=== PATIENT | female | born 1975 | race Caucasian/White ===

== ENCOUNTER → 2016-08-29 | Outpatient (CLI) | payer BC ==
--- NOTE | 2016-08-29 11:13 | CR ---
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 No fracture or acute o sseous abnormality. Bone mineralization is otherwise normal.
== END ==
LOC: MW.CHORTHO 07:41
PROVIDERS: ATTEND Physician Assistant
DX: M25.511 Pain in right shoulder (principal); M19.011 Primary osteoarthritis, right shoulder
CPT/HCPCS: 73030-26-RT; 73030-RT

== ENCOUNTER 2019-01-06 06:38 | Day surgery (SDC) | payer OTHER ==
[2019-01-05 11:56] LABS: BLOOD UREA NITROGEN,BUN 14 mg/dL (7.0-18.0); CARBON DIOXIDE,CO2 24.2 mmol/L (21.0-32.0); CHLORIDE,CL 105 mmol/L (98-107); GLUCOSE RANDOM 95 mg/dL (74-106); POTASSIUM,K 3.9 mmol/L (3.5-5.1); SODIUM,NA 139 mmol/L (136-145)
[~2019-01-06 06:38] MED LIST: Lactated Ringers 1,000 ML IV SCH; Sodium Chloride 0.9% 10 ML SDV IV PRN; Sodium Chloride 0.9% 10 ML Syringe FLUSH PRN; Sodium Chloride 0.9% 2.5 ML Syringe FLUSH PRN; ceFAZolin 2 GM in Premix Bag 1 BAG IV ONE
[2019-01-06] MEDS ORDERED: Scopolamine 1.5 MG Transdermal Patch TRDERM PRN (07:04)
--- NOTE | 2019-01-06 07:08 | PCM.PREANE ---
Preanesthetic Assessment - Anesthesia/Transfusion/Family Hx Anesthesia History: Prior Anesthesia Without Reaction Family History of Anesthesia Reaction: No Transfusion History: No Prior Transfusion(s) Intubation History: Unknown - Review of Systems General: No Symptoms Pulmonary: No Symptoms Cardiovascular: No Symptoms Gastrointestinal: No Symptoms Neurological: No Symptoms Other: Reports: None - Physical Assessment Vital Signs: Last Vital Signs Temp 36.6 C 01/06/19 06:52 Pulse 67 01/06/19 06:52 Resp 16 01/06/19 06:52 BP 137/86 01/06/19 06:52 Pulse Ox 98 01/06/19 06:52 Height: 5 ft 6 in Weight: 97.069 kg ASA Class: 2 Mental Status: Alert & Oriented x3 Airway Class: Mallampati = 2 Dentition: Reports: Normal Dentition, Partial (upper front - fixed) Thyro-Mental Finger Breadths: 3 Mouth Opening Finger Breadths: 2 ROM/Head Extension: Full Lungs: Clear to Auscultation, Normal Respiratory Effort Cardiovascular: Regular Rate, Regular Rhythm - Lab Values: Laboratory Last Values WBC 8.86 K/uL (4.0-11.0) 01/05/19 10:15 RBC 4.58 M/uL (4.30-5.90) 01/05/19 10:15 Hgb 13.5 g/dL (12.0-16.0) 01/05/19 10:15 Hct 40.1 % (36.0-46.0) 01/05/19 10:15 MCV 87.6 fL (80.0-98.0) 01/05/19 10:15 MCH 29.5 pg (27.0-32.0) 01/05/19 10:15 MCHC 33.7 g/dL (31.0-37.0) 01/05/19 10:15 RDW Std Deviation 43.2 fl (28.0-62.0) 01/05/19 10:15 RDW Coeff of Jackson 14 % (11.0-15.0) 01/05/19 10:15 Plt Count 258 K/uL (150-400) 01/05/19 10:15 MPV 10.00 fL (7.40-12.00) 01/05/19 10:15 Nucleated RBC % 0.0 /100WBC 01/05/19 10:15 Nucleated RBCs # 0 K/uL 01/05/19 10:15 Sodium 139 mmol/L (136-145) 01/05/19 10:15 Potassium 3.9 mmol/L (3.5-5.1) 01/05/19 10:15 Chloride 105 mmol/L (98-107) 01/05/19 10:15 Carbon Dioxide 24.2 mmol/L (21.0-32.0) 01/05/19 10:15 BUN 14 mg/dL (7.0-18.0) 01/05/19 10:15 Creatinine 0.8 mg/dL (0.6-1.0) 01/05/19 10:15 Est Cr Clr Drug Dosing 82.26 mL/min 01/05/19 10:15 Estimated GFR (MDRD) > 60.0 ml/min 01/05/19 10:15 Glucose 95 mg/dL (74-106) 01/05/19 10:15 Calcium 9.7 mg/dL (8.5-10.1) 01/05/19 10:15 HCG, Qual NEGATIVE (NEG) 01/05/19 10:15 Blood Type A POSITIVE 01/05/19 10:15 Antibody Screen NEGATIVE 01/05/19 10:15 - Allergies Allergies/Adverse Reactions: Allergies Allergy/AdvReac Type Severity Reaction Status Date / Time Sulfa (Sulfonamide Allergy Nausea and Verified 01/06/19 07:00 Antibiotics) Vomiting - Blood Blood Available: No - Anesthesia Plan Pre-Op Medication Ordered: None - Acknowledgements Anesthesia Type Planned: General Anesthesia Pt an Appropriate Candidate for the Planned Anesthesia: Yes Alternatives and Risks of Anesthesia Discussed w Pt/Guardian: Yes Pt/Guardian Understands and Agrees with Anesthesia Plan: Yes PreAnesthesia Questionnaire HEENT History: Reports: Impaired Vision Other HEENT History: wears glasses, has upper permanent dental bridge Cardiovascular History: Reports: High Cholesterol Respiratory History: Reports: None Gastrointestinal History: Reports: GERD Other Gastrointestinal History: occas Genitourinary History: Reports: None GARMENT FINISHER History: Reports: Dysfunctional Uterine Bleeding Musculoskeletal History: Reports: None Neurological History: Reports: Headaches, Chronic Other Neuro History: "whiplash" as a child Psychiatric History: Reports: Anxiety, Depression Endocrine/Metabolic History: Reports: Obesity/BMI 30+ Hematologic History: Reports: Anemia Immunologic History: Reports: None Oncologic (Cancer) History: Reports: None Dermatologic History: Reports: None - Past Surgical History Head Surgeries/Procedures: Reports: None HEENT Surgical History: Reports: None Cardiovascular Surgical History: Reports: None Respiratory Surgical History: Reports: None GI Surgical History: Reports: Cholecystectomy Female Surgical History: Reports: Breast Biopsy, Section, Tubal Ligation, Other (See Below) Other Female Surgeries/Procedures: hysteroscopy x2, ovarian cystectomy Endocrine Surgical History: Reports: None Neurological Surgical History: Reports: None Musculoskeletal Surgical History: Reports: None Oncologic Surgical History: Reports: None - SUBSTANCE USE Smoking Status *Q: Former Smoker (quit ) Recreational Drug Use History: No - HOME MEDS Home Medications: Home Meds Acetaminophen [Tylenol] 325 mg PO ASDIRECTED 03/23/15 [History] Ibuprofen [Motrin] 800 mg PO ASDIRECTED PRN 03/23/15 [History] hydrOXYzine HCl [Atarax] 25 mg PO QID PRN 03/23/15 [History] Calcium Carbonate [Tums] 1 tab PO ASDIRECTED PRN 07/18/15 [History] Omeprazole Magnesium [Prilosec Otc] 20 mg PO DAILY 01/03/19 [History] - CURRENT (IN HOUSE) MEDS Current Meds: Current Medications Lactated Ringer's (Ringers, Lactated) 1,000 mls @ 125 mls/hr IV ASDIRECTED KATY Last Admin: 01/06/19 06:57 Dose: 125 mls/hr Sodium Chloride (Saline Flush) 10 ml FLUSH ASDIRECTED PRN PRN Reason: Keep Vein Open Sodium Chloride (Saline Flush) 2.5 ml FLUSH ASDIRECTED PRN PRN Reason: Keep Vein Open Sodium Chloride (Normal Saline) 10 ml IV ASDIRECTED PRN PRN Reason: IV Use Discontinued Medications Cefazolin Sodium/Dextrose 2 gm (/ Premix) 50 mls @ 100 mls/hr IV ONETIME ONE Stop: 01/05/19 09:18
[2019-01-06] MEDS ORDERED: Propofol 200 MG/20 ML SDV ONE (07:15)
[2019-01-06] MEDS ORDERED: Neostigmine Methylsulfate 1 MG/ML 5 ML Syringe ONE (07:15)
[2019-01-06] MEDS ORDERED: Midazolam 1 MG/ML 2 ML SDV ONE ×2 (07:15→11:49)
[2019-01-06] MEDS ORDERED: Lidocaine 2% 5 ML SDV ONE (07:15)
[2019-01-06] MEDS ORDERED: Glycopyrrolate 0.2 MG/ML SDV ONE ×2 (07:15→08:40)
[2019-01-06] MEDS ORDERED: Ondansetron 4 MG/2 ML SDV ONE (07:15)
[2019-01-06] MEDS ORDERED: fentaNYL 250 MCG/5 ML SDV ONE ×2 (07:16→08:37)
[2019-01-06] MEDS ORDERED: Fluorescein 5 ML Vial ONE (07:33)
[2019-01-06] MEDS ORDERED: Octyl 2-Cyanoacrylate 1 Tube ONE (07:34)
[2019-01-06] MEDS ORDERED: Atropine 0.1 MG/ML 10 ML Syringe IVPUSH PRN ×2 (07:47)
[2019-01-06] MEDS ORDERED: EPINEPHrine 1:10,000 1 MG/10 ML Syringe IVPUSH PRN (07:47)
[2019-01-06] MEDS ORDERED: Albuterol 0.083% 2.5 MG/3 ML Neb Soln NEB PRN (07:47)
[2019-01-06] MEDS ORDERED: Naloxone 0.4 MG/ML Syringe IVPUSH PRN (07:47)
[2019-01-06] MEDS ORDERED: 50% Dextrose in Water 50 ML Syringe IVPUSH PRN (07:47)
[2019-01-06] MEDS ORDERED: fentaNYL 100 MCG/2 ML SDV IVPUSH PRN (07:47)
[2019-01-06] MEDS ORDERED: ceFAZolin 1 GM Vial ONE (08:25)
[2019-01-06] MEDS ORDERED: Sodium Chloride 0.9% 20 ML ONE (08:25)
[2019-01-06] MEDS ORDERED: HYDROmorphone 2 MG/ML Syringe ONE (08:37)
[2019-01-06] MEDS ORDERED: Furosemide 40 MG/4 ML VIAL ONE (08:55)
[2019-01-06] MEDS ORDERED: Dexamethasone 4 MG/ML 5 ML MDV ONE (08:56)
[2019-01-06] MEDS ORDERED: Phenylephrine/Normal Saline 100 MCG/ML 10 ML Syringe ONE (09:17)
[2019-01-06] MEDS ORDERED: Acetaminophen/oxyCODONE 325-5 MG Tab PO PRN (10:25)
[2019-01-06] MEDS ORDERED: Morphine 4 MG/ML Syringe IVPUSH PRN (10:25)
[2019-01-06] MEDS ORDERED: Ondansetron 4 MG/2 ML SDV IVPUSH PRN (10:25)
[2019-01-06] MEDS ORDERED: Ketorolac 30 MG/ML SDV IVPUSH ONE (10:25)
[2019-01-06] MEDS ORDERED: Promethazine 25 MG/ML SDV IM PRN (10:25)
--- NOTE | 2019-01-06 10:28 | PCM.OPNOTE ---
- General Post-Op/Procedure Note Date of Surgery/Procedure: 01/06/19 Operative Procedure(s): TLH, Cysto Pre Op Diagnosis: Bleeding , pain Post-Op Diagnosis: Same Anesthesia Technique: General ET Tube Primary Surgeon: Cornelio Goddard EBL in mLs: 100 Complications: None Condition: Good
[2019-01-06] MEDS ORDERED: Rocuronium 100 MG/10 ML Syringe ONE (10:52)
[2019-01-06] MEDS ORDERED: Midazolam 1 MG/ML 2 ML SDV IVPUSH ONE (11:44)
--- NOTE | 2019-01-06 11:46 | OR ---
SURGEON: Cornelio Goddard MD DATE OF PROCEDURE: PREOPERATIVE DIAGNOSES: 1. Menometrorrhagia. 2. Pelvic pain. POSTOPERATIVE DIAGNOSES: 1. Menometrorrhagia. 2. Pelvic pain. OPERATIONS PERFORMED: Multiple-puncture laparoscopy; extensive lysis of adhesions; total laparoscopic hysterectomy and laparoscopic bilateral salpingectomy, preserving both ovaries; and cystoscopy. PRIMARY SURGEON: Cornelio Goddadr MD. OUTSIDE MACHINIST: OR tech. ANESTHESIA: General endotracheal intubation, Edgar Galindo and Dr. Bazan. ESTIMATED BLOOD LOSS: 100 mL. COMPLICATIONS: None. FINDINGS: The patient had extensive adhesions from previous procedures. Uterus is about 12-week size. Ovary essentially is normal. INDICATION FOR SURGERY: [place] referred to the admit note. PROCEDURE IN DETAIL: The patient brought to the OR, properly identified, and after adequate level of anesthesia, the patient was placed in lithotomy position with an access to the abdomen and the vagina. The patient was prepped and draped in sterile fashion as usual. Caruso catheter was placed in the bladder for drainage and then the colpotomizer and manipulator were placed in the uterus for manipulation, and after properly inflated all the valves in the manipulator, the operation shifted abdominally. Stab wound done beneath the umbilicus. Veress needle was placed in the peritoneal cavity and that cavity insufflated with 3.5 L of carbon dioxide. Through the infraumbilical incision, a 5 mm trocar with the scope in it inserted utilizing the Visiport technique. Once we were in the peritoneal cavity, steep Trendelenburg was done and then it was noticed that the patient does have adhesions. I was able to put a 10/12 trocar in the left iliac fossa, and using the Harmonic scalpel and scissors with sharp and blunt dissection, the adhesion was lysed from the anterior abdominal wall and the pelvic sidewall restoring a normal anatomy and a clear path to the pelvis. The operation was started by identifying all the landmark of the pelvis, and then once we did that, then the superior pedicle coagulated, transected from both side. The ovary preserved and both tubes included with the specimen. Then, the round ligament dissected downward and then transected with the William Harmonic scalpel and then the anterior leaf of the broad ligament dissected downward on both sides, pushing the bladder completely away from the operative field, and the surgeon could easily feel through the instrument the manipulator ring. Then, the uterine vessel is coagulated, transected with William Harmonic scalpel on both sides and then judicious use of the bipolar cautery is used to dry the field. Once we were done, then the vaginal incision was done at the edge of the manipulator with the William Harmonic scalpel in a circular fashion, detaching the uterus from its attachment to the vagina. The uterus and tubes were removed vaginally and then pneumoperitoneum re-established by placing vaginal pack in the vagina and then the vaginal wall was closed laparoscopically with 2-0 Vicryl, PDS interrupted sutures. Once this was done, then thorough irrigation of the pelvis. There was no oozing or bleeding from all the pedicle. At this time, we asked the Anesthesia personnel to give the patient fluorescein, and after removing all the fluid from the abdomen and placing the patient supine on the operative table again, the Caruso catheter removed. Cystoscopy was performed. The bladder was intact. Both ureteric orifices were seen with the dye coming from both of them. Thus, the patency of both ureters verified. Satisfied with these findings, the cystoscope was removed and the bladder drained and multiple laparoscopic removed from the abdomen and the vagina and then the laparoscopic incision was closed with 2-0 Vicryl and sutured in layer and Dermabond. Instrument and sponge count was correct. The patient tolerated the procedure well, went to recovery room in stable general condition. ERIS / JENNIFER /[id number]
--- NOTE | 2019-01-06 12:22 | PCM.POSTAN ---
POST ANESTHESIA ASSESSMENT - MENTAL STATUS Mental Status: Alert, Oriented - VITAL SIGNS Vital Signs: Last Vital Signs Temp 36.1 C 01/06/19 10:24 Pulse 68 01/06/19 12:10 Resp 8 L 01/06/19 12:10 BP 117/61 01/06/19 12:10 Pulse Ox 98 01/06/19 12:10 - RESPIRATORY Respiratory Status: Respiratory Rate WNL, Airway Patent, O2 Saturation Stable - CARDIOVASCULAR CV Status: Pulse Rate WNL, Blood Pressure Stable - GASTROINTESTINAL GI Status: No Symptoms - PAIN Pain Score: 2 - POST OP HYDRATION Hydration Status: Adequate & Stable - OBSERVATIONS Free Text/Narrative:: no anesthesia problems
[2019-01-06] MEDS: Acetaminophen/oxyCODONE 325-5 MG Tab PO PRN (14:59)
[2019-01-06] MEDS: Ketorolac 30 MG/ML SDV IVPUSH PRN (18:26)
[2019-01-07] MEDS: Ketorolac 30 MG/ML SDV IVPUSH PRN ×2 (00:22→07:39)
[2019-01-07 06:31] LABS: BLOOD UREA NITROGEN,BUN 12 mg/dL (7.0-18.0); CARBON DIOXIDE,CO2 27.2 mmol/L (21.0-32.0); CHLORIDE,CL 106 mmol/L (98-107); GLUCOSE RANDOM 104 mg/dL (74-106); POTASSIUM,K 3.8 mmol/L (3.5-5.1); SODIUM,NA 142 mmol/L (136-145)
--- NOTE | 2019-01-07 07:01 | PCM48HPAN ---
Post Anesthesia Note - EVALUATION WITHIN 48HRS OF ANESTHETIC Vital Signs in Normal Range: Yes Patient Participated in Evaluation: Yes Respiratory Function Stable: Yes Airway Patent: Yes Cardiovascular Function Stable: Yes Hydration Status Stable: Yes Pain Control Satisfactory: Yes Nausea and Vomiting Control Satisfactory: Yes Mental Status Recovered: Yes Vital Signs: Last Vital Signs Temp 97.6 F 01/07/19 00:28 Pulse 68 01/07/19 00:28 Resp 18 01/07/19 00:28 BP 117/58 L 01/07/19 00:28 Pulse Ox 96 01/07/19 00:28
--- NOTE | 2019-01-07 09:02 | PCM.SURGPN ---
- General Info Date of Service: 01/07/19 POD#: 1 Functional Status: Reports: Pain Controlled - Review of Systems General: Reports: No Symptoms HEENT: Reports: No Symptoms Pulmonary: Reports: No Symptoms Cardiovascular: Reports: No Symptoms Gastrointestinal: Reports: No Symptoms Genitourinary: Reports: No Symptoms Musculoskeletal: Reports: No Symptoms Skin: Reports: No Symptoms Neurological: Reports: No Symptoms Psychiatric: Reports: No Symptoms - Patient Data Vitals - Most Recent: Last Vital Signs Temp 36.6 C 01/07/19 08:00 Pulse 66 01/07/19 08:00 Resp 18 01/07/19 00:28 BP 133/66 01/07/19 08:00 Pulse Ox 99 01/07/19 08:00 Weight - Most Recent: 97.069 kg I&O - Last 24 Hours: Intake & Output 01/06/19 01/07/19 01/07/19 22:59 06:59 14:59 Intake Total 1065 840 Output Total 700 1750 Balance 365 -910 Lab Results Last 24 Hrs: Laboratory Results - last 24 hr 01/07/19 01/07/19 Range/Units 06:07 06:07 WBC 9.72 (4.0-11.0) K/uL RBC 3.64 L (4.30-5.90) M/uL Hgb 10.4 L (12.0-16.0) g/dL Hct 32.3 L (36.0-46.0) % MCV 88.7 (80.0-98.0) fL MCH 28.6 (27.0-32.0) pg MCHC 32.2 (31.0-37.0) g/dL RDW Std Deviation 45.1 (28.0-62.0) fl RDW Coeff of Jackson 14 (11.0-15.0) % Plt Count 214 (150-400) K/uL MPV 9.90 (7.40-12.00) fL Neut % (Auto) 70.1 (48.0-80.0) % Lymph % (Auto) 21.1 (16.0-40.0) % [place] % (Auto) 8.1 (0.0-15.0) % Eos % (Auto) 0.5 (0.0-7.0) % Baso % (Auto) 0.2 (0.0-1.5) % Neut # (Auto) 6.8 H (1.4-5.7) K/uL Lymph # (Auto) 2.1 (0.6-2.4) K/uL [place] # (Auto) 0.8 (0.0-0.8) K/uL Eos # (Auto) 0.1 (0.0-0.7) K/uL Baso # (Auto) 0.0 (0.0-0.1) K/uL Nucleated RBC % 0.0 /100WBC Nucleated RBCs # 0 K/uL Sodium 142 (136-145) mmol/L Potassium 3.8 (3.5-5.1) mmol/L Chloride 106 (98-107) mmol/L Carbon Dioxide 27.2 (21.0-32.0) mmol/L BUN 12 (7.0-18.0) mg/dL Creatinine 0.8 (0.6-1.0) mg/dL Est Cr Clr Drug Dosing 82.26 mL/min Estimated GFR (MDRD) > 60.0 ml/min Glucose 104 (74-106) mg/dL Calcium 9.0 (8.5-10.1) mg/dL Med Orders - Current: Current Medications Lactated Ringer's (Ringers, Lactated) 1,000 mls @ 125 mls/hr IV ASDIRECTED [facility] Last Admin: 01/06/19 06:57 Dose: 125 mls/hr Ketorolac Tromethamine (Toradol) 30 mg IVPUSH Q6H PRN PRN Reason: Pain (severe 7-10) Stop: 01/11/19 10:25 Last Admin: 01/07/19 07:39 Dose: 30 mg Morphine Sulfate (Morphine) 4 mg IVPUSH Q2H PRN PRN Reason: Pain (severe 7-10) Ondansetron HCl (Zofran) 4 mg IVPUSH Q6H PRN PRN Reason: Nausea/Vomiting Oxycodone/Acetaminophen (Percocet 325-5 Mg) 1 tab PO Q4H PRN PRN Reason: Pain (moderate 4-6) Last Admin: 01/06/19 14:59 Dose: 1 tab Oxycodone/Acetaminophen (Percocet 325-5 Mg) 2 tab PO Q4H PRN PRN Reason: Pain (moderate 4-6) Last Admin: 01/06/19 20:38 Dose: 2 tab Promethazine HCl (Phenergan) 25 mg IM Q6H PRN PRN Reason: Nausea/Vomiting Scopolamine (Transderm-Scop) 1.5 mg TRDERM Q72H PRN PRN Reason: Nausea Last Admin: 01/06/19 07:31 Dose: 1.5 mg Sodium Chloride (Saline Flush) 10 ml FLUSH ASDIRECTED PRN PRN Reason: Keep Vein Open Sodium Chloride (Saline Flush) 2.5 ml FLUSH ASDIRECTED PRN PRN Reason: Keep Vein Open Sodium Chloride (Normal Saline) 10 ml IV ASDIRECTED PRN PRN Reason: IV Use Discontinued Medications Albuterol (Proventil Neb Soln) 2.5 mg NEB ONETIME PRN PRN Reason: Wheezing Atropine Sulfate (Atropine 0.1 Mg/Ml) 0.5 mg IVPUSH ASDIRECTED PRN PRN Reason: Hypo-perfusion Atropine Sulfate (Atropine 0.1 Mg/Ml) 1 mg IVPUSH ASDIRECTED PRN PRN Reason: Hypo-Perfusion Cefazolin Sodium (Ancef) Confirm Administered Dose 2 gm .ROUTE .STK-MED ONE Stop: 01/06/19 08:26 Dexamethasone (Dexamethasone) Confirm Administered Dose 20 mg .ROUTE .STK-MED ONE Stop: 01/06/19 08:57 Dextrose/Water (Dextrose 50% In Water) 50 ml IVPUSH ASDIRECTED PRN PRN Reason: Hypoglycemia Epinephrine HCl (Epinephrine 1:10,000) 1 mg IVPUSH ASDIRECTED PRN PRN Reason: ACLS Guidelines Fentanyl (Sublimaze) Confirm Administered Dose 250 mcg .ROUTE .STK-MED ONE Stop: 01/06/19 07:17 Fentanyl (Sublimaze) 50 - 100 mcg IVPUSH Q5M PRN PRN Reason: Pain Fentanyl (Sublimaze) Confirm Administered Dose 250 mcg .ROUTE .STK-MED ONE Stop: 01/06/19 08:38 Fluorescein Sodium (Ak-Fluor) Confirm Administered Dose 5 ml .ROUTE .STK-MED ONE Stop: 01/06/19 07:34 Furosemide (Lasix) Confirm Administered Dose 40 mg .ROUTE .STK-MED ONE Stop: 01/06/19 08:56 Glycopyrrolate (Robinul) Confirm Administered Dose 0.4 mg .ROUTE .ST-MED ONE Stop: 01/06/19 07:16 Glycopyrrolate (Robinul) Confirm Administered Dose 0.2 mg .ROUTE .[facility]-MED ONE Stop: 01/06/19 08:41 Hydromorphone HCl (Dilaudid) Confirm Administered Dose 2 mg .ROUTE .[facility]-MED ONE Stop: 01/06/19 08:38 Cefazolin Sodium/Dextrose 2 gm (/ Premix) 50 mls @ 100 mls/hr IV ONETIME ONE Stop: 01/05/19 09:18 Last Admin: 01/06/19 12:01 Dose: Not Given Sodium Chloride (Normal Saline) Confirm Administered Dose 20 mls @ as directed .ROUTE .[facility]-MED ONE Stop: 01/06/19 08:26 Ketorolac Tromethamine (Toradol) 30 mg IVPUSH ONETIME ONE Stop: 01/06/19 10:26 Last Admin: 01/06/19 11:19 Dose: 30 mg Lidocaine (Xylocaine-Mpf 2%) Confirm Administered Dose 5 ml .ROUTE .[facility]-MED ONE Stop: 01/06/19 07:16 Midazolam HCl (Versed 1 Mg/Ml) Confirm Administered Dose 2 mg .ROUTE .[facility]-MED ONE Stop: 01/06/19 07:16 Midazolam HCl (Versed 1 Mg/Ml) 2 mg IVPUSH ONETIME ONE Stop: 01/06/19 11:45 Last Admin: 01/06/19 11:53 Dose: 2 mg Midazolam HCl (Versed 1 Mg/Ml) Confirm Administered Dose 2 mg .ROUTE .[facility]-MED ONE Stop: 01/06/19 11:50 Last Admin: 01/06/19 12:01 Dose: Not Given Naloxone HCl (Narcan) 0.1 mg IVPUSH ASDIRECTED PRN PRN Reason: Respiratory Depression Neostigmine Methylsulfate (Neostigmine) Confirm Administered Dose 5 mg .ROUTE .[facility]-MED ONE Stop: 01/06/19 07:16 Octyl Cyanoacrylate (Dermabond Advance) Confirm Administered Dose 1 applic .ROUTE .[facility]-MED ONE Stop: 01/06/19 07:35 Ondansetron HCl (Zofran) Confirm Administered Dose 4 mg .ROUTE .ST-MED ONE Stop: 01/06/19 07:16 Phenylephrine HCl (Phenylephrine In Ns 100 Mcg/Ml) Confirm Administered Dose 1 mg .ROUTE .STK-MED ONE Stop: 01/06/19 09:18 Propofol (Diprivan 20 Ml) Confirm Administered Dose 200 mg .ROUTE .STK-MED ONE Stop: 01/06/19 07:16 Rocuronium [place] (Zemuron) Confirm Administered Dose 100 mg .ROUTE .STK-MED ONE Stop: 01/06/19 10:53 - Exam Wound/Incisions: Healing Well General: Alert, Oriented HEENT: Pupils Equal Neck: Supple Lungs: Clear to Auscultation, Normal Respiratory Effort Cardiovascular: Regular Rate, Regular Rhythm GI/Abdominal Exam: Normal Bowel Sounds, Soft, Non-Tender, No Organomegaly, No Distention, No Abnormal Bruit, No Mass, Pelvis Stable Extremities: Normal Inspection, Normal Range of Motion, Non-Tender, No Pedal Edema, Normal Capillary Refill Skin: Warm, Dry, Intact Neurological: No New Focal Deficit Psy/Mental Status: Alert, Normal Affect, Normal Mood - Problem List Review Problem List Initiated/Reviewed/Updated: Yes - My Orders Last 24 Hours: Active Orders 24 hr Category Date Time Status Patient Status [ADT] Routine ADT 01/06/19 10:25 Active Antiembolic Devices [RC] PER UNIT ROUTINE Care 01/06/19 10:26 Active Notify Provider Vital Signs [RC] ASDIRECTED Care 01/06/19 10:25 Active Oxygen Therapy [RC] ASDIRECTED Care 01/06/19 10:25 Active RT Incentive Spirometry [RC] Q2HWA Care 01/06/19 10:25 Active Up With Assistance [RC] PER UNIT ROUTINE Care 01/06/19 10:25 Active Up ad Geno [RC] PER UNIT ROUTINE Care 01/06/19 10:25 Active Regular Diet [DIET] Diet 01/06/19 Lunch Active Acetaminophen/oxyCODONE [Percocet 325-5 MG] Med 01/06/19 10:25 Active 1 tab PO Q4H PRN Acetaminophen/oxyCODONE [Percocet 325-5 MG] Med 01/06/19 10:25 Active 2 tab PO Q4H PRN Ketorolac [Toradol] Med 01/06/19 10:25 Active 30 mg IVPUSH Q6H PRN Morphine Med 01/06/19 10:25 Active 4 mg IVPUSH Q2H PRN Ondansetron [Zofran] Med 01/06/19 10:25 Active 4 mg IVPUSH Q6H PRN Promethazine [Phenergan] Med 01/06/19 10:25 Active 25 mg IM Q6H PRN Peripheral IV Discontinue [OM.PC] Routine Oth 01/06/19 10:25 Ordered Sequential Compression Device [OM.PC] Per Unit Routine Oth 01/06/19 10:25 Ordered Resuscitation Status Routine Resus Stat 01/06/19 10:25 Ordered Medication Orders Lactated Ringer's (Ringers, Lactated) 1,000 mls @ 125 mls/hr IV ASDIRECTED KATY Last Admin: 01/06/19 06:57 Dose: 125 mls/hr Ketorolac Tromethamine (Toradol) 30 mg IVPUSH Q6H PRN PRN Reason: Pain (severe 7-10) Stop: 01/11/19 10:25 Last Admin: 01/07/19 07:39 Dose: 30 mg Admin: 01/07/19 00:22 Dose: 30 mg Admin: 01/06/19 18:26 Dose: 30 mg Morphine Sulfate (Morphine) 4 mg IVPUSH Q2H PRN PRN Reason: Pain (severe 7-10) Ondansetron HCl (Zofran) 4 mg IVPUSH Q6H PRN PRN Reason: Nausea/Vomiting Oxycodone/Acetaminophen (Percocet 325-5 Mg) 1 tab PO Q4H PRN PRN Reason: Pain (moderate 4-6) Last Admin: 01/06/19 14:59 Dose: 1 tab Oxycodone/Acetaminophen (Percocet 325-5 Mg) 2 tab PO Q4H PRN PRN Reason: Pain (moderate 4-6) Last Admin: 01/06/19 20:38 Dose: 2 tab Promethazine HCl (Phenergan) 25 mg IM Q6H PRN PRN Reason: Nausea/Vomiting Scopolamine (Transderm-Scop) 1.5 mg TRDERM Q72H PRN PRN Reason: Nausea Last Admin: 01/06/19 07:31 Dose: 1.5 mg Sodium Chloride (Saline Flush) 10 ml FLUSH ASDIRECTED PRN PRN Reason: Keep Vein Open Sodium Chloride (Saline Flush) 2.5 ml FLUSH ASDIRECTED PRN PRN Reason: Keep Vein Open Sodium Chloride (Normal Saline) 10 ml IV ASDIRECTED PRN PRN Reason: IV Use - Assessment Assessment (Free Text/Narrative):: Status post total laparoscopic hysterectomy the patient doing well afebrile lab work is normal on regular diet no bleeding - Plan Plan (Free Text/Narrative):: The patient would be discharged home today the postvasectomy instruction is given there is no restriction on her diet prescription for Narco 5 for postoperative pain is given and the patient have an appointment to see me in the office in one week
[2019-01-07] MEDS: Acetaminophen/oxyCODONE 325-5 MG Tab PO PRN ×2 (09:26→14:46)
[2019-01-07 11:58] VITALS: BP 119/61
== END 2019-01-07 14:50 | disposition home or self-care (01) ==
LOC: MW.SDS 06:38 → MW.MS 11:50 → MW.SDS 01-07 14:50
PROVIDERS: ATTEND Obstetrics & Gynecology
DX: N80.0 Endometriosis of uterus (principal); N99.4 Postprocedural pelvic peritoneal adhesions; F41.9 Anxiety disorder, unspecified; K21.9 Gastro-esophageal reflux disease without esophagitis; E78.00 Pure hypercholesterolemia, unspecified; E66.9 Obesity, unspecified; Z68.34 Body mass index [BMI] 34.0-34.9, adult; Z79.899 Other long term (current) drug therapy; Z91.041 Radiographic dye allergy status; Z88.0 Allergy status to penicillin; Z88.2 Allergy status to sulfonamides; Z98.51 Tubal ligation status; Z87.891 Personal history of nicotine dependence
CPT/HCPCS: 36415; 58571; 80048; 84703; 85025; 85027; 86850; 86900; 86901; A9270; J0690; J1100; J1170; J1885; J1940; J2001; J2250; J2370; J2405; J2704; J3010; J3490; J7120; 00944

== ENCOUNTER 2019-09-23 18:42 | Emergency (ER) | payer BC, OTHER ==
[2019-09-23] MEDS ORDERED: Erythromycin Base 0.5% Ophth Oint 1 GM Tube EYERT ONE (19:07)
--- NOTE | 2019-09-23 19:14 | EDM.PDOC ---
ED HPI GENERAL MEDICAL PROBLEM - General Chief Complaint: Eye Problems Stated Complaint: RIGHT EYE INJURY Time Seen by Provider: 09/23/19 19:02 Source of Information: Reports: Patient History Limitations: Reports: No Limitations - History of Present Illness INITIAL COMMENTS - FREE TEXT/NARRATIVE: HISTORY AND PHYSICAL: History of present illness: Patient is a 44-year-old female who presents to the emergency room with concerns of a foreign body in the right eye. She states she noticed a stain on her wall and had gone to rub it off when she felt like something hit her in the eye. She irrigated her eye for approximately 10 minutes but still had the sensation there was something in it. She does not wear contact lenses, does use glasses. She offers no other systemic complaints. Review of systems: As per history of present illness and below otherwise all systems reviewed and negative. Past medical history: As per history of present illness and as reviewed below otherwise noncontributory. Surgical history: As per history of present illness and as reviewed below otherwise noncontributory. Social history: See social history for further information Family history: As per history of present illness and as reviewed below otherwise noncontributory. Physical exam: General: Well -developed and well-nourished 44-year-old female. Alert and oriented. Nontoxic-appearing and in no acute distress. HEENT: Atraumatic, normocephalic, pupils equal and reactive bilaterally, negative for conjunctival pallor or scleral icterus, injection noted to right eye, SEE NOTE, mucous membranes moist, trachea midline. No drooling or trismus noted. No meningeal signs. No hot potato voice noted. Skin: Intact, warm, dry. No lesions or rashes noted. Extremities: Atraumatic, moves all extremities per self without difficulty or deficits, negative for cords or calf pain. Neurovascular unremarkable. Neuro: Awake, alert, oriented. Cranial nerves II through XII unremarkable. Cerebellum unremarkable. Motor and sensory unremarkable throughout. Exam nonfocal. Notes: Fluorescein and Wood's lamp eye exam was done and it does show some uptake at the 3 to 7 o'clock position on the right sclera. No evidence of foreign body. Visual acuity is within normal limits. Erythromycin ointment was given here. We discussed signs and symptoms that would prompt her to return to the emergency room. Supportive care measures were reviewed and discussed. Voices understanding and is agreeable to plan of care. Denies any further questions or concerns at this time. Diagnostics: Exam, visual acuity Therapeutics: Erythromycin Prescription: Polytrim Impression: Corneal abrasion, right Plan: 1. Use the eye antibiotic as directed. 2. Avoid wearing any contact lenses, until cleared. Please use your glasses. 3. Follow up with ophthalmology as we discussed. Return to the ED as needed and as discussed. Definitive disposition and diagnosis as appropriate pending reevaluation and review of above. Onset: Today RIGHT EYE Pain Score (Numeric/FACES): 4 - Related Data Allergies Allergy/AdvReac Type Severity Reaction Status Date / Time Penicillins Allergy Itching Verified 09/23/19 18:54 Sulfa (Sulfonamide Allergy Nausea and Verified 09/23/19 18:54 Antibiotics) Vomiting MRI constrast Allergy Intermediate Hives Uncoded 09/23/19 18:54 Home Meds: Home Meds Acetaminophen [Tylenol] 325 mg PO ASDIRECTED 03/23/15 [History] Ibuprofen [Motrin] 800 mg PO ASDIRECTED PRN 03/23/15 [History] hydrOXYzine HCL [Atarax] 25 mg PO QID PRN 03/23/15 [History] Calcium Carbonate [Tums] 1 tab PO ASDIRECTED PRN 07/18/15 [History] Polymyxin B Sulf/Trimethoprim [Polytrim Eye Drops] 1 drop OP 6XDAY 7 Days #1 bottle 09/23/19 [Rx] Past Medical History HEENT History: Reports: Impaired Vision Other HEENT History: wears glasses, has upper permanent dental bridge Cardiovascular History: Reports: High Cholesterol Respiratory History: Reports: None Gastrointestinal History: Reports: GERD Other Gastrointestinal History: occas Genitourinary History: Reports: None 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: Reports: Dysfunctional Uterine Bleeding Musculoskeletal History: Reports: None Neurological History: Reports: Headaches, Chronic Other Neuro History: "whiplash" as a child Psychiatric History: Reports: Anxiety, Depression Endocrine/Metabolic History: Reports: None Hematologic History: Reports: Anemia Other Hematologic History: HX WITH DYSFUNCTIONAL UTERINE BLEEDING Immunologic History: Reports: None Oncologic (Cancer) History: Reports: None Dermatologic History: Reports: None - Past Surgical History Head Surgeries/Procedures: Reports: None HEENT Surgical History: Reports: None Cardiovascular Surgical History: Reports: None Respiratory Surgical History: Reports: None GI Surgical History: Reports: None Female Surgical History: Reports: Breast Biopsy, Section, Tubal Ligation, Other (See Below) Other Female Surgeries/Procedures: hysteroscopy x2, ovarian cystectomy Neurological Surgical History: Reports: None Musculoskeletal Surgical History: Reports: None Oncologic Surgical History: Reports: None Social & Family History - Tobacco Use Smoking Status *Q: Never Smoker - Recreational Drug Use Recreational Drug Use: No ED ROS GENERAL - Review of Systems Review Of Systems: Comprehensive ROS is negative, except as noted in HPI. ED EXAM GENERAL W FULL EYE - Physical Exam Exam: See Below (See dictation) Course - Vital Signs Last Recorded V/S: Last Vital Signs Temp 97.4 F 09/23/19 18:50 Pulse 73 09/23/19 18:50 Resp 16 09/23/19 18:50 BP 134/81 09/23/19 18:50 Pulse Ox 97 09/23/19 18:50 - Orders/Labs/Meds Orders: Active Orders 24 hr Category Date Time Status Vision Test [RC] ASDIRECTED Care 09/23/19 19:07 Ordered Meds: Medications Discontinued Medications Generic Name Dose Route Start Last Admin Trade Name Efrainq PRN Reason Stop Dose Admin Erythromycin 1 gm 09/23/19 19:07 09/23/19 19:12 Erythromycin 0.5% Ophth Oint EYERT 09/23/19 19:08 1 gm ONETIME ONE Administration Departure - Departure Time of Disposition: 19:14 Disposition: Home, Self-Care 01 Clinical Impression: Corneal abrasion Qualifiers: Encounter type: initial encounter Laterality: right Qualified Code(s): S05.01XA - Injury of conjunctiva and corneal abrasion without foreign body, right eye, initial encounter - Discharge Information Prescriptions: Polymyxin B Sulf/Trimethoprim [Polytrim Eye Drops] 1 drop OP 6XDAY 7 Days #1 bottle Instructions: Corneal Abrasion, [id number] Referrals: Supriya Harman [employer] [Primary Care Provider] - Forms: ED Department Discharge Additional Instructions: The following information is given to patients seen in the emergency department who are being discharged to home. This information is to outline your options for follow-up care. We provide all patients seen in our emergency department with a follow-up referral. The need for follow-up, as well as the timing and circumstances, are variable depending upon the specifics of your emergency department visit. If you don't have a primary care physician on staff, we will provide you with a referral. We always advise you to contact your personal physician following an emergency department visit to inform them of the circumstance of the visit and for follow-up with them and/or the need for any referrals to a consulting specialist. The emergency department will also refer you to a specialist when appropriate. This referral assures that you have the opportunity for follow-up care with a specialist. All of these measure are taken in an effort to provide you with optimal care, which includes your follow-up. Under all circumstances we always encourage you to contact your private physician who remains a resource for coordinating your care. When calling for follow-up care, please make the office aware that this follow-up is from your recent emergency room visit. If for any reason you are refused follow-up, please contact the [facility] Emergency Department at and asked to speak to the emergency department charge nurse. [facility] [address] [place] [id number] [facility] [address] [place] [address] 1. Use the eye antibiotic as directed, over the next 5-7 days. 2. Avoid wearing any contact lenses, until cleared. Please use your glasses. 3. Follow up with ophthalmology as we discussed. Return to the ED as needed and as discussed. Sepsis Event Note - Evaluation Sepsis Screening Result: No Definite Risk - Focused Exam Vital Signs: Vital Signs Temp Pulse Resp BP Pulse Ox 09/23/19 18:50 97.4 F 73 16 134/81 97 Date Exam was Performed: 09/23/19 Time Exam was Performed: 19:19 - My Orders Last 24 Hours: My Active Orders 09/23/19 19:07 Vision Test [RC] ASDIRECTED - Assessment/Plan Last 24 Hours: My Active Orders 09/23/19 19:07 Vision Test [RC] ASDIRECTED
[2019-09-23 19:56] VITALS: BP 129/82; PULSE 85
== END 2019-09-23 19:20 | disposition home or self-care (01) ==
LOC: MW.ED 18:42
DX: S05.01XA Injury of conjunctiva and corneal abrasion without foreign body, right eye, initial encounter (principal); F41.9 Anxiety disorder, unspecified; Z88.0 Allergy status to penicillin; Z88.2 Allergy status to sulfonamides; Z91.041 Radiographic dye allergy status; Z79.899 Other long term (current) drug therapy; X58.XXXA Exposure to other specified factors, initial encounter
CPT/HCPCS: 99283; A9270

== ENCOUNTER 2019-11-08 18:31 | Emergency (ER) | payer BC ==
[2019-11-08] MEDS ORDERED: Ondansetron 4 MG Tab.DIS PO ONE (19:11)
[2019-11-08] MEDS ORDERED: Meclizine 25 MG Tab PO ONE (19:11)
--- NOTE | 2019-11-08 19:17 | EDM.PDOC ---
ED HPI GENERAL MEDICAL PROBLEM - General Chief Complaint: Cardiovascular Problem Stated Complaint: SICK Time Seen by Provider: 11/08/19 18:34 Source of Information: Reports: Patient History Limitations: Reports: No Limitations - History of Present Illness INITIAL COMMENTS - FREE TEXT/NARRATIVE: Presents reporting a 3-hour history of spinning dizziness. Increases with movement of her head. Complicated by nausea. Denies head injury, upper respiratory symptoms, abdominal pain, chest pain, cough, or fever. - Related Data Allergies Allergy/AdvReac Type Severity Reaction Status Date / Time Penicillins Allergy Itching Verified 11/08/19 18:39 Sulfa (Sulfonamide Allergy Nausea and Verified 11/08/19 18:39 Antibiotics) Vomiting MRI constrast Allergy Intermediate Hives Uncoded 11/08/19 18:39 Home Meds: Home Meds Acetaminophen [Tylenol] 325 mg PO Q6H PRN 03/23/15 [History] Ibuprofen [Motrin] 800 mg PO Q6H PRN 03/23/15 [History] hydrOXYzine HCL [Atarax] 25 mg PO QID PRN 03/23/15 [History] Calcium Carbonate [Tums] 1 tab PO ASDIRECTED PRN 07/18/15 [History] Meclizine HCl 25 mg PO Q6HR PRN #10 tablet 11/08/19 [Rx] Ondansetron [Zofran ODT] 1 tab PO Q6H PRN #4 tab.dis 11/08/19 [Rx] Polymyxin B Sulf/Trimethoprim [Polytrim Eye Drops] 1 drop OP BID 11/08/19 [History] Past Medical History HEENT History: Reports: Impaired Vision Other HEENT History: wears glasses, has upper permanent dental bridge Cardiovascular History: Reports: High Cholesterol Respiratory History: Reports: None Gastrointestinal History: Reports: GERD Other Gastrointestinal History: occas Genitourinary History: Reports: None 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: Dysfunctional Uterine Bleeding Musculoskeletal History: Reports: None Neurological History: Reports: Headaches, Chronic Other Neuro History: "whiplash" as a child Psychiatric History: Reports: Anxiety, Depression Endocrine/Metabolic History: Reports: None Hematologic History: Reports: Anemia Other Hematologic History: HX WITH DYSFUNCTIONAL UTERINE BLEEDING Immunologic History: Reports: None Oncologic (Cancer) History: Reports: None Dermatologic History: Reports: None - Past Surgical History Head Surgeries/Procedures: Reports: None HEENT Surgical History: Reports: None Cardiovascular Surgical History: Reports: None Respiratory Surgical History: Reports: None GI Surgical History: Reports: Cholecystectomy Female Surgical History: Reports: Breast Biopsy, Section, Hysterectomy, Tubal Ligation, Other (See Below) Other Female Surgeries/Procedures: hysteroscopy x2, ovarian cystectomy Neurological Surgical History: Reports: None Musculoskeletal Surgical History: Reports: None Oncologic Surgical History: Reports: None Social & Family History - Family History Cardiac: Reports: CAD Endocrine/Metabolic: Reports: Diabetes, Type I - Tobacco Use Smoking Status *Q: Never Smoker - Caffeine Use Caffeine Use: Reports: Coffee, Soda - Recreational Drug Use Recreational Drug Use: No ED ROS GENERAL - Review of Systems Review Of Systems: Comprehensive ROS is negative, except as noted in HPI. ED EXAM, GENERAL - Physical Exam Exam: See Below Exam Limited By: No Limitations General Appearance: Alert, No Apparent Distress Ears: Normal External Exam Nose: Normal Inspection Throat/Mouth: Normal Inspection Head: Atraumatic, Normocephalic Neck: Normal Inspection Respiratory/Chest: No Respiratory Distress, Lungs Clear, Normal Breath Sounds Cardiovascular: Normal Peripheral Pulses, Regular Rate, Rhythm, No Murmur Back Exam: Normal Inspection Extremities: Normal Inspection Neurological: Alert, Oriented, Normal Cognition, Other ([place] positive for spinning dizziness, negative for nystagmus) Psychiatric: Normal Affect, Normal Mood Skin Exam: Warm, Dry, Intact, Normal Color, No Rash Course - Vital Signs Last Recorded V/S: Last Vital Signs Temp 35.4 C L 11/08/19 18:38 Pulse 82 11/08/19 18:38 Resp 18 11/08/19 18:38 BP 164/77 H 11/08/19 18:38 Pulse Ox 100 11/08/19 18:38 - Orders/Labs/Meds Meds: Medications Discontinued Medications Generic Name Dose Route Start Last Admin Trade Name Freq PRN Reason Stop Dose Admin Meclizine HCl 25 mg 11/08/19 19:11 11/08/19 19:21 Antivert PO 11/08/19 19:12 25 mg ONETIME ONE Administration Ondansetron HCl 4 mg 11/08/19 19:11 11/08/19 19:21 Zofran Odt PO 11/08/19 19:12 4 mg ONETIME ONE Administration Departure - Departure Time of Disposition: 20:33 Disposition: Home, Self-Care 01 Condition: Good Clinical Impression: BPPV (benign paroxysmal positional vertigo) Referrals: PCP,None [Primary Care Provider] - [facility] [Outside] [facility] [Outside] Forms: ED Department Discharge Additional Instructions: The following information is given to patients seen in the emergency department who are being discharged to home. This information is to outline your options for follow-up care. We provide all patients seen in our emergency department with a follow-up referral. The need for follow-up, as well as the timing and circumstances, are variable depending upon the specifics of your emergency department visit. If you don't have a primary care physician on staff, we will provide you with a referral. We always advise you to contact your personal physician following an emergency department visit to inform them of the circumstance of the visit and for follow-up with them and/or the need for any referrals to a consulting specialist. The emergency department will also refer you to a specialist when appropriate. This referral assures that you have the opportunity for follow-up care with a specialist. All of these measure are taken in an effort to provide you with optimal care, which includes your follow-up. Under all circumstances we always encourage you to contact your private physician who remains a resource for coordinating your care. When calling for follow-up care, please make the office aware that this follow-up is from your recent emergency room visit. If for any reason you are refused follow-up, please contact the [facility] Emergency Department at and asked to speak to the emergency department charge nurse. 1. Meclizine every 6 hours as needed for dizziness 2. Zofran ODT every 6 hours as needed for nausea 3. Check YouTube for a demonstration of Debbie maneuver for relief of BPPV 4. Follow-up in primary care if your symptoms persist for referral to physical therapy Sepsis Event Note (ED) - Evaluation Sepsis Screening Result: No Definite Risk - Focused Exam Vital Signs: Vital Signs Temp Pulse Resp BP Pulse Ox 11/08/19 18:38 35.4 C L 82 18 164/77 H 100
[2019-11-08 20:31] VITALS: BP 127/78; PULSE 72
== END 2019-11-08 20:44 | disposition home or self-care (01) ==
LOC: MW.ED 18:31
DX: H81.10 Benign paroxysmal vertigo, unspecified ear (principal); F41.9 Anxiety disorder, unspecified; Z88.0 Allergy status to penicillin; Z88.2 Allergy status to sulfonamides; Z91.041 Radiographic dye allergy status; Z79.899 Other long term (current) drug therapy
CPT/HCPCS: 99283; A9270

== ENCOUNTER 2019-12-15 09:05 | Day surgery (SDC) | payer BC ==
[~2019-12-15 09:05] MED LIST changes: -ceFAZolin 2 GM in Premix Bag 1 BAG IV ONE
[2019-12-15] MEDS ORDERED: fentaNYL 100 MCG/2 ML SDV ONE (09:32)
[2019-12-15] MEDS ORDERED: Midazolam 1 MG/ML 2 ML SDV ONE (09:32)
[2019-12-15] MEDS ORDERED: Propofol 200 MG/20 ML SDV ONE (09:32)
[2019-12-15] MEDS ORDERED: Lidocaine 2% 5 ML SDV ONE (09:34)
--- NOTE | 2019-12-15 09:36 | PCM.PREANE ---
Preanesthetic Assessment - Anesthesia/Transfusion/Family Hx Anesthesia History: Prior Anesthesia Without Reaction Family History of Anesthesia Reaction: No Transfusion History: No Prior Transfusion(s) Intubation History: Unknown - Review of Systems General: No Symptoms Pulmonary: No Symptoms Cardiovascular: No Symptoms Gastrointestinal: No Symptoms Neurological: No Symptoms - Physical Assessment NPO Status Date: 12/14/19 Vital Signs: Last Vital Signs Temp 98.2 F 12/15/19 09:27 Pulse 87 12/15/19 09:27 Resp 14 12/15/19 09:27 BP 140/87 12/15/19 09:27 Pulse Ox 97 12/15/19 09:27 Height: 5 ft 6 in Weight: 97.069 kg ASA Class: 2 Mental Status: Alert & Oriented x3 Airway Class: Mallampati = 2 Dentition: Reports: Normal Dentition ROM/Head Extension: Full Lungs: Clear to Auscultation, Normal Respiratory Effort Cardiovascular: Regular Rate, Regular Rhythm - Allergies Allergies/Adverse Reactions: Allergies Allergy/AdvReac Type Severity Reaction Status Date / Time Penicillins Allergy Itching Verified 12/15/19 09:33 Sulfa (Sulfonamide Allergy Nausea and Verified 12/15/19 09:33 Antibiotics) Vomiting MRI constrast Allergy Intermediate Hives Uncoded 12/15/19 09:33 - Blood Blood Available: No - Anesthesia Plan Pre-Op Medication Ordered: None - Acknowledgements Anesthesia Type Planned: General Anesthesia (tiva) Pt an Appropriate Candidate for the Planned Anesthesia: Yes Alternatives and Risks of Anesthesia Discussed w Pt/Guardian: Yes Pt/Guardian Understands and Agrees with Anesthesia Plan: Yes PreAnesthesia Questionnaire HEENT History: Reports: Other (See Below) Other HEENT History: wears glasses, has 2 upper permanent dental bridges Cardiovascular History: Reports: High Cholesterol Respiratory History: Reports: None Gastrointestinal History: Reports: GERD Other Gastrointestinal History: occas Genitourinary History: Reports: Renal Calculus Other Genitourinary History: has passed 1 kidney stone 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: Musculoskeletal History: Reports: Neck Pain, Chronic Other Musculoskeletal History: 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 Neurological History: Reports: Migraines, Other (See Below) Other Neuro History: takes Verapamil daily for migraines, hx of motion sickness Psychiatric History: Reports: Anxiety Endocrine/Metabolic History: Reports: Obesity/BMI 30+ Hematologic History: Reports: Anemia Other Hematologic History: HX WITH DYSFUNCTIONAL UTERINE BLEEDING Immunologic History: Reports: None Oncologic (Cancer) History: Reports: None Dermatologic History: Reports: None - Past Surgical History Head Surgeries/Procedures: Reports: None HEENT Surgical History: Reports: None Cardiovascular Surgical History: Reports: None Respiratory Surgical History: Reports: None GI Surgical History: Reports: Cholecystectomy Female Surgical History: Reports: Breast Biopsy, Section, Cyst ectomy, Hysterectomy, Tubal Ligation Other Female Surgeries/Procedures: hysteroscopy x2, ovarian cystectomy Endocrine Surgical History: Reports: None Neurological Surgical History: Reports: None Musculoskeletal Surgical History: Reports: None Oncologic Surgical History: Reports: None - SUBSTANCE USE Smoking Status *Q: Former Smoker Tobacco Use Within Last Twelve Months: No Recreational Drug Use History: No - HOME MEDS Home Medications: Home Meds Acetaminophen [Tylenol] 325 mg PO Q6H PRN 03/23/15 [History] Ibuprofen [Motrin] 800 mg PO Q6H PRN 03/23/15 [History] hydrOXYzine HCL [Atarax] 25 mg PO TID PRN 03/23/15 [History] Cholecalciferol (Vitamin D3) [Vitamin D3] 2,000 unit PO DAILY 12/12/19 [History] Cyclobenzaprine [Flexeril] 10 mg PO ASDIRECTED PRN 12/12/19 [History] Ergocalciferol (Vitamin D2) [Vitamin D2] 50,000 unit PO ASDIRECTED 12/12/19 [History] Lansoprazole [Prevacid] 15 mg PO DAILY 12/12/19 [History] Multivitamin 1 tab PO DAILY 12/12/19 [History] Verapamil HCl [Verapamil ER] 120 mg PO QAM 12/12/19 [History] - CURRENT (IN HOUSE) MEDS Current Meds: Current Medications Lactated Ringer's (Ringers, Lactated) 1,000 mls @ 125 mls/hr IV ASDIRECTED KATY Sodium Chloride (Saline Flush) 10 ml FLUSH ASDIRECTED PRN PRN Reason: Keep Vein Open Sodium Chloride (Saline Flush) 2.5 ml FLUSH ASDIRECTED PRN PRN Reason: Keep Vein Open Sodium Chloride (Saline Flush) 10 ml FLUSH ASDIRECTED PRN PRN Reason: Keep Vein Open Sodium Chloride (Saline Flush) 2.5 ml FLUSH ASDIRECTED PRN PRN Reason: Keep Vein Open Sodium Chloride (Normal Saline) 10 ml IV ASDIRECTED PRN PRN Reason: IV Use
--- NOTE | 2019-12-15 11:03 | PCM.OPNOTE ---
- General Post-Op/Procedure Note Date of Surgery/Procedure: 12/15/19 Operative Procedure(s): Diagnostic colonoscopy Findings: Sigmoid colon polyp Pre Op Diagnosis: Change in bowel habits Post-Op Diagnosis: sigmoid colon polyp Anesthesia Technique: MAC Primary Surgeon: Philomena Luciano Condition: Good
--- NOTE | 2019-12-15 11:13 | PCM.POSTAN ---
POST ANESTHESIA ASSESSMENT - MENTAL STATUS Mental Status: Alert, Oriented - VITAL SIGNS Vital Signs: Last Vital Signs Temp 97.0 F 12/15/19 10:53 Pulse 87 12/15/19 11:06 Resp 10 L 12/15/19 11:06 BP 134/78 12/15/19 11:06 Pulse Ox 96 12/15/19 11:06 - RESPIRATORY Respiratory Status: Respiratory Rate WNL, Airway Patent, O2 Saturation Stable - CARDIOVASCULAR CV Status: Pulse Rate WNL, Blood Pressure Stable - GASTROINTESTINAL GI Status: No Symptoms - PAIN Pain Score: 0 - POST OP HYDRATION Hydration Status: Adequate & Stable
[2019-12-15 11:33] VITALS: BP 141/87; PULSE 79
--- NOTE | 2019-12-15 12:30 | PCM48HPAN ---
Post Anesthesia Note - EVALUATION WITHIN 48HRS OF ANESTHETIC Vital Signs in Normal Range: Yes Patient Participated in Evaluation: Yes Respiratory Function Stable: Yes Airway Patent: Yes Cardiovascular Function Stable: Yes Hydration Status Stable: Yes Pain Control Satisfactory: Yes Nausea and Vomiting Control Satisfactory: Yes Mental Status Recovered: Yes Vital Signs: Last Vital Signs Temp 97.2 F 12/15/19 11:12 Pulse 79 12/15/19 11:12 Resp 14 12/15/19 11:12 BP 141/87 H 12/15/19 11:12 Pulse Ox 96 12/15/19 11:12
--- NOTE | 2019-12-16 18:13 | OR ---
SURGEON: PHILOMENA LUCIANO MD DATE OF PROCEDURE: 12/15/2019 PREOPERATIVE DIAGNOSIS: Change in bowel habits. POSTOPERATIVE DIAGNOSIS: Sigmoid colon polyp. PROCEDURE PERFORMED: Diagnostic colonoscopy. PRIMARY SURGEON: Philomena Luciano MD ANESTHESIA: MAC. INSTRUMENT USED: Olympus colonoscope. EXTENT OF EXAM: To the cecum. PREPARATION: Good. LIMITATIONS: None. INDICATIONS FOR EXAMINATION: The patient is a 44-year-old female who presents with changes in her bowel habits. I explained the need for diagnostic colonoscopy. I explained the procedure, expected perioperative course, and risks. The patient verbalized understanding and wishes to proceed. PROCEDURE IN DETAIL: The patient was brought into the endoscopy suite and placed in a left lateral decubitus position. A time-out was completed verifying the patient's name, age, date of , allergies, and procedure to be performed. Monitored anesthesia care was induced and continuous oxygen was provided via nasal cannula throughout the procedure. After adequate sedation was achieved, a digital rectal exam was performed. This exam was within normal limits. A well-lubricated colonoscope was inserted in the rectum and advanced under direct visualization to the level of the cecum. The cecum was identified by both visual and anatomic landmarks. A photograph was taken of cecal cap; however, due to looping of the scope more proximally, I was unable to retroflex the scope within the cecum. The scope was then fully withdrawn while examining the color, texture, anatomy, and integrity of the mucosa from the cecum to the anal canal. The patient was found to have one sessile polyp within the distal sigmoid colon. This was removed in piecemeal fashion using cold biopsy forceps. The scope was then brought into the rectum and retroflexed to allow visualization of the anal canal opening. This appeared normal and a photograph was taken. The scope was then straightened out and fully withdrawn. The cecum to anus time was 8 minutes. The patient tolerated the procedure well and was transferred to the PACU in stable condition. ENDOSCOPIC DIAGNOSIS: Sigmoid colon polyp. RECOMMENDATIONS: Follow up in clinic in 2 weeks. CHAD RODRIGUEZ /[id number]
== END 2019-12-15 12:33 | disposition home or self-care (01) ==
LOC: MW.SDS 09:05
PROVIDERS: ATTEND Surgery
DX: K63.5 Polyp of colon (principal); F41.9 Anxiety disorder, unspecified; K21.9 Gastro-esophageal reflux disease without esophagitis; E78.00 Pure hypercholesterolemia, unspecified; K58.9 Irritable bowel syndrome, unspecified; E66.9 Obesity, unspecified; Z91.041 Radiographic dye allergy status; Z88.0 Allergy status to penicillin; Z88.2 Allergy status to sulfonamides; Z79.899 Other long term (current) drug therapy; Z87.891 Personal history of nicotine dependence; Z68.34 Body mass index [BMI] 34.0-34.9, adult
CPT/HCPCS: J2001; J2250; J2704; J3010; J7120